=== PATIENT | female | born 1990 | race Asian ===

== ENCOUNTER 2024-03-18 13:28 | Outpatient (REF) | payer MEDICAID, SELFPAY ==
--- NOTE | ~2024-03-18 | XR_ITS ---
EXAMINATION: XR KNEE, LEFT CLINICAL INFORMATION: M25.562 - Pain in left knee COMPARISON: None available. TECHNIQUE: Three views of the left knee. FINDINGS: No fracture, dislocation, or focal bony abnormality. Normal bony mineralization. Mild medial compartment joint space narrowing, and minimal lateral joint space narrowing. Patellofemoral compartment demonstrates lateral facet narrowing to a mild to moderate degree with marginal osteophytes. There is a small suprapatellar joint effusion on lateral projection. There are normal soft tissues. XR/XR knee LT 3V IMPRESSION: 1. No acute bony abnormalities. 2. Mild tricompartmental osteoarthritis, most significant medial compartment. 3. Small suprapatellar joint effusion. Electronically signed by: Beto Coe MD 05/26/2024 09:24 AM [facility]
--- NOTE | ~2024-03-18 | XR_ITS ---
EXAMINATION: XR KNEE, RIGHT CLINICAL INFORMATION: M17.11 - Unilateral primary osteoarthritis, right knee COMPARISON: None available. TECHNIQUE: Three views of the right knee. FINDINGS: No fracture, dislocation, or focal bony abnormality. Normal bony mineralization. Minimal medial and lateral compartment joint space narrowing. Patellofemoral compartment demonstrates lateral facet narrowing to a mild to moderate degree with small marginal osteophytes. There is no definite joint effusion on the lateral projection although assessment is mildly limited due to flexion of the knee. There are normal soft tissues. XR/XR knee RT 3V IMPRESSION: 1. No acute bony abnormalities. 2. Minimal tricompartmental osteoarthritis. Electronically signed by: Beto Coe MD 05/26/2024 09:26 AM [facility] [place]
== END 2024-03-18 13:29 | disposition home or self-care (01) ==
LOC: HO.XRAY 13:28
PROVIDERS: Visit Provider Physician Assistant
DX: M17.11 Unilateral primary osteoarthritis, right knee (principal); M25.562 Pain in left knee; G89.29 Other chronic pain
CPT/HCPCS: 73562; 99212

== ENCOUNTER → 2024-03-18 13:33 | Outpatient (BNV) | payer MEDICAID, SELFPAY | PROVIDERS: Visit Provider Radiology Diagnostic Radiology | DX: M25.561 Pain in right knee (principal); M25.562 Pain in left knee | CPT/HCPCS: 73562 ==

== ENCOUNTER 2024-03-18 14:13 | Outpatient (AMB) | payer MEDICAID, SELFPAY ==
--- NOTE | 2024-03-18 14:15 | A.OFFVIS_ITS ---
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 Pt states she denies any previous injury to her knee before it becoming painful. Pt denies any radiating pain. Pt states she also has pain in her right knee as well. Pt states her left knee used to be more painful but state both are the same level of pain and it is becoming difficult to walk. Pt denies any previous surgeries or injections in her knees. 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 She denies any previous injury on her knees. She states she has pain in her bilateral knees that used to be worse on her left knee however the pain level is currently equal on both knees. Her pain makes it difficult for her to ambulate without pain and gives out. She also reports popping in her left knee. She has not had any previous surgeries or injection in her knees. She has tried physical therapy for a month without benefits. Review of Systems Const All systems reviewed & are unremarkable except as noted in HPI and below Physical Exam Const General: cooperative, healthy appearing, comfortable, no acute distress, well developed and alert Orientation/consciousness: patient oriented x3 HEENT Head: Yes normal to inspection, Yes normocephalic and Yes atraumatic Eyes General: appearance normal, both eyes and all related structures Resp Effort & Inspection: normal respiratory effort and able to speak in complete sentences Cardio Rate: regular rate Peripheral pulses: Peripheral pulses 2+ throughout GI Palpation (GI): Soft to palpation Skin Lesions: no lesions Rashes: no rashes Neuro General: patient oriented x3 Extrem Other: Left knee: Skin intact, no erythema or joint effusion. Tenderness along the medial joint line. Full ROM with crepitus. Negative Marivel?s. No ligamentous laxity. NVI. ? Results Reviewed Results Reviewed: EXAM: MR KNEE WITHOUT CONTRAST LEFT 01/31/24 INDICATION: Chronic left knee pain. TECHNIQUE: Routine multiplanar imaging is obtained. COMPARISON: None. FINDINGS:?Examination of the menisci shows a tear of the posterior horn medial meniscus at the root (series 8 image 19) associated with moderate meniscal extrusion. The tear extends slightly peripherally as a vertical longitudinal tear of the proximal white zone. Lateral meniscus is intact. Normal anterior cruciate ligament and posterior cruciate ligament. Medial collateral ligament and lateral collateral complex are intact. No osseous contusion. Mild reactive bone marrow edema along the medial joint oly e, chiefly on the tibial side. Moderate to large knee joint effusion. Patellar articular cartilage is preserved. Femoral trochlear cartilage is intact. Mild cartilage thinning posterior medial femorotibial joint. Intact extensor mechanism. IMPRESSION: 1. Posterior horn medial meniscal tear principally at the root with moderate meniscal extrusion. Minor articular cartilage loss medial femorotibial compartment peripherally with mild reactive edema within the proximal tibia peripherally. 2. Moderate to large knee joint effusion. xray of bilat knee obtained today show mild pf oa Assessment & Plan Assessment & Plan (1) Chronic patellofemoral pain of both knees: Code(s): M25.561 - Pain in right knee; M25.562 - Pain in left knee; G89.29 - Other chronic pain Category: Medical Plan I did explain the findings on MRI with the patient and her brother with an plaster molder present today. It does not seem as though she has mechanical symptoms at this time; however, it is difficulty to completely determine with the language barrier. At this time, We discussed options which include PT, NSAIDs and injections. The patient will defer on the injection today and proceed with PT and NSAIDs. I did send a prescription of Celebrex to her pharmacy. She will see us back in [address] Castillo for re-evaluation, sooner if needed. Orders: Orders XR knee RT 1V Today M25.561 - Pain in right knee XR knee LT 3V Today M25.562 - Pain in left knee XR knee RT 3V Today M17.11 - Unilateral primary osteoarthritis, right knee XR knee LT 1V Today M25.562 - Pain in left knee PT Evaluation and Treatment Today G89.29 - Other chronic pain, M25.561 - Pain in right knee, M25.562 - Pain in left knee Medications: New celecoxib (Celebrex) 200 mg PO BID 60 caps 3RF 30 days Patient Instructions: Scribed for Ta-Dena Morgan, PA-C, by Gilberto Rico, medical diagnostic radiographer, on 03/18/2024 at 2:15 PM EST.? I, Raheem Morgan PA-C, have personally reviewed and agree with the information entered by the scribe. Coding Level of Care Code New Pt Level 3 (55644) Complex EM visit Add On G2211 Diagnoses Chronic patellofemoral pain of both knees M25.561; M25.562; G89.29
== END 2024-03-18 15:10 | disposition home or self-care (01) ==
PROVIDERS: PCP Physician Assistant; Visit Provider Physician Assistant
DX: M25.561 Pain in right knee (principal); M25.562 Pain in left knee; G89.29 Other chronic pain
CPT/HCPCS: 99203

== ENCOUNTER 2024-04-27 09:38 | Outpatient (AMB) | payer MEDICAID, SELFPAY ==
--- NOTE | 2024-04-27 09:39 | MHC.OFFVIS ---
Vital Signs 04/27/24 09:41 Height 5 ft 2 in Weight 189 lb BMI 34.6 Intake Visit Reasons: OV - Bilateral PF Pain Intake Note: Geovanna is a 33 year old female who presents today for a follow up of her left knee pain. Patient was last seen with Lisa in February where she provided the patient with Physical therapy and an Rx of Celebrex as the patient deferred injections. Allergies No Known Allergies Allergy (Verified 03/18/24 14:15) HPI HPI OV - Bilateral PF Pain: Details: Geovanna is a 33 year old female who presents today for a follow up of her left knee pain. Patient was last seen with Lisa in February where she provided the patient with Physical therapy and an Rx of Celebrex as the patient deferred injections. She describes pain that often prevents her from leaving the house with swelling. She does not know how she injured her knee. Her right knee has begun bothering her. She is pretty apprehensive about surgery. Physical Exam Vital Signs: BMI result Body Mass Index 34.6 Extrem Other: Moderate left knee effusion and mild right knee effusion. Medial compartment tenderness on the left with medial joint line tenderness and a positive deep Marivel's. Results Reviewed Results Reviewed: I personally reviewed the MR images. Impression: 1. Posterior horn medial meniscal tear principally at the root with moderate meniscal extrusion. Minor articular cartilage loss medial femorotibial compartment peripherally with mild reactive edema within the proximal tibia peripherally. 2. Moderate to large knee joint effusion. Assessment & Plan Assessment & Plan (1) Tear of medial meniscus of left knee: Code(s): S83.242A - Other tear of medial meniscus, current injury, left knee, initial encounter Category: Medical Plan: This is a 33-year-old woman with a left knee medial meniscus root tear. The etiology is unknown and the timeframe is indeterminate. She is 33 however and has no significant arthritic changes of the knee. I recommend a left knee arthroscopy with possible medial meniscus repair. I explained to her the rationale of the procedure. Possible that is unrepairable and it is hard to know for certain based on the MRI but it is clear that there is a root tear and that she is having swelling and pain. Given her age I do recommend surgery and I discussed that if we are able to repair the posterior horn it should decrease the risk of worsening arthritis. Like I said, she is apprehensive about surgery. She feels overwhelmed at home with her and does not know if she can manage her responsibilities will recovering from surgery. I explained to her the risks benefits and alternatives to the surgery. Should she elect to not have surgery would recommend physical therapy for strengthening weight loss. She will think about it and get back to me. Plan Will discuss surgical treatment with family and call me if she wishes to move forward with surgical intervention, Otherwise PRN. Coding Level of Care Code Est Pt Level 4 (84649) Diagnoses Tear of medial meniscus of left knee S83.242A
[2024-04-27 09:41] VITALS: BMI 34.6
== END 2024-04-27 10:03 | disposition home or self-care (01) ==
LOC: HO.HOS 09:39
PROVIDERS: PCP Physician Assistant; Visit Provider Orthopaedic Surgery
DX: S83.242A Other tear of medial meniscus, current injury, left knee, initial encounter (principal)
CPT/HCPCS: 99214

== ENCOUNTER → 2024-04-27 09:38 | Outpatient (BNVA) | payer MEDICAID, SELFPAY | PROVIDERS: PCP Physician Assistant; Visit Provider Orthopaedic Surgery | DX: S83.242A Other tear of medial meniscus, current injury, left knee, initial encounter (principal); M25.561 Pain in right knee; X58.XXXA Exposure to other specified factors, initial encounter; Y93.9 Activity, unspecified; Y92.9 Unspecified place or not applicable; Y99.9 Unspecified external cause status | CPT/HCPCS: 99212 ==

== ENCOUNTER 2024-05-28 08:43 | Outpatient (AMB) | payer MEDICAID, SELFPAY ==
[2024-05-28 09:25] VITALS: BMI 34.6
--- NOTE | 2024-05-28 09:25 | A.OFFVIS_ITS ---
Vital Signs 05/28/24 09:25 Height 5 ft 2 in Weight 189 lb BMI 34.6 Intake Visit Reasons: Pre-Lt Knee 06/03/24 Intake Note: Geovanna is a 33 year old female who presents today for a pre op appointment for her left knee 06/03/24 NE. Allergies No Known Allergies Allergy (Verified 05/28/24 09:26) HPI HPI Pre-Lt Knee 06/03/24: Details: 33-year-old female who presents in the office today for her preoperative history and physical exam prior to a left knee arthroscopy to be performed on 06/03/[address] Castillo. The patient reports her pain is limiting her daily activities. She has tried and failed all conservative treatments. Therefore, she has elected to proceed with a left knee arthroscopy. Patient has no known allergy history. Patient is currently taking, as follows: -Celecoxib 200 mg PO BID. Patient has no medical history. Patient has no surgical history. [facility] Social History (Updated 05/28/24 @ 09:26 by Sam Galloway) Alcohol intake: never Patient Tobacco Use Status: Never used Tobacco Current occupational status: unemployed Review of Systems Const All systems reviewed & are unremarkable except as noted in HPI and below Physical Exam Vital Signs: BMI result Body Mass Index 34.6 Const General: cooperative, healthy appearing, comfortable, no acute distress, well developed, alert and awake Orientation/consciousness: patient oriented x3 HEENT Head: Yes normal to inspection, Yes normocephalic and Yes atraumatic Eyes General: appearance normal, both eyes and all related structures Neck Neck: Yes normal visual inspection and Yes no lymphadenopathy Resp Effort & Inspection: normal respiratory effort and able to speak in complete sentences Cardio Rate: regular rate Peripheral pulses: Peripheral pulses 2+ throughout GI Inspection: Yes normal to inspection Palpation (GI): Soft to palpation Skin General skin exam: no rashes or lesions noted Neuro General: patient oriented x3 Extrem Other: Moderate left knee effusion and mild right knee effusion. Medial compartment tenderness on the left with medial joint line tenderness and a positive deep Marivel's. Psych Mental Status: mental status grossly normal Assessment & Plan Assessment & Plan (1) Tear of medial meniscus of left knee: Code(s): S83.242A - Other tear of medial meniscus, current injury, left knee, initial encounter Category: Medical Plan Ms. Gallardo is a 33-year-old female who presents in the office today for her preoperative history and physical exam prior to a left knee arthroscopy to be performed on 06/03/[address] Castillo. The patient reports her pain is limiting her daily activities. She has tried and failed all conservative treatments. Therefore, she has elected to proceed with a left knee arthroscopy. Patient has no known allergy history. Patient is currently taking, as follows: -Celecoxib 200 mg PO BID. Patient has no medical history. Patient has no surgical history. I discussed in detail the procedure and what to expect pre and post operatively. We discussed the risks, benefits and alternatives to the surgery and the rehabilitation course. The risks include infection, bleeding, nerve injury, ongoing pain, swelling, and stiffness, perioperative risk of injury to bones and soft tissues, and blood clots. I have answered all questions and with their understanding they have consented to move forward with a left knee arthroscopy to be performed on 06/03/[address] Castillo. Follow-up will be at the post operative appointment on 06/09/2024, or sooner if needed. Patient Instructions: Scribed by Priscilla Cooley senior medical technologist, for Lisa Christensen PA-C on 05/28/24 at 9:43 am EST. Coding Level of Care Code Global (95583) Diagnoses Tear of medial meniscus of left knee S83.242A
== END 2024-05-28 09:46 | disposition home or self-care (01) ==
PROVIDERS: PCP Physician Assistant; Visit Provider Physician Assistant
DX: S83.242A Other tear of medial meniscus, current injury, left knee, initial encounter (principal)
CPT/HCPCS: 99024

== ENCOUNTER → 2024-05-28 08:43 | Outpatient (BNVA) | payer MEDICAID, SELFPAY | PROVIDERS: PCP Physician Assistant; Visit Provider Physician Assistant | DX: Z01.818 Encounter for other preprocedural examination (principal); S83.242A Other tear of medial meniscus, current injury, left knee, initial encounter; X58.XXXA Exposure to other specified factors, initial encounter; Y93.9 Activity, unspecified; Y92.9 Unspecified place or not applicable; Y99.9 Unspecified external cause status | CPT/HCPCS: 99212 ==

== ENCOUNTER 2024-06-03 05:44 | Day surgery (SDC) | payer MEDICAID, SELFPAY ==
[2024-06-01 10:09] VITALS: BMI 34.6
--- NOTE | 2024-06-01 14:06 | HO.ANESPROP2 ---
Documented by User: Dagmar Allison NP 06/02/24 10:37 HPI - Anesthesia Eval Consult details Narrative: 33yo F for Left Knee Arthroscopy possible medial meniscus repair PMFSH Active Problems Active Problems: All Active Problems Tear of medial meniscus of left knee (Acute) Chronic patellofemoral pain of both knees (Acute) Surgical History Surgical History Hx of section Social History Social History Alcohol intake: never Patient Tobacco Use Status: Never used Tobacco Use of substances other than those prescribed or required for medical reasons: No Are you DNR?: No Advance Directives: No Advance Directives Information Provided: Yes Current occupational status: unemployed Meds Allergies Allergy/AdvReac Type Severity Reaction Status Date / Time No Known Allergies Allergy Verified 06/03/24 06:12 Exam Height,Weight and Vital Signs: Height 5 ft 2 in Weight 85.729 kg Assessment and Plan Assessment Anesthesia Assessment: Chart Reviewed Documented by User: Audrey Roldan MD 06/03/24 08:16 PMFSH Family History Family history of problems with anesthesia: No Surgical History Surgical History Hx of section History of Problems with Anesthesia: No Social History Social History Alcohol intake: never Patient Tobacco Use Status: Never used Tobacco Use of substances other than those prescribed or required for medical reasons: No Are you DNR?: No Advance Directives: No Advance Directives Information Provided: Yes Current occupational status: unemployed Meds Allergies Allergy/AdvReac Type Severity Reaction Status Date / Time No Known Allergies Allergy Verified 06/03/24 06:12 Exam Airway Mallampati Class: III (no neck) TM Dist: <=3cm Neck ROM: Poor Heart: rrr Lungs: cta Assessment and Plan Assessment Anesthesia Assessment: Anesthesia Plan Discussed Final Anesthetic Review Family History of Problems with Anesthesia: No History of Problems with Anesthesia: No NPO: Yes ASA Class: III Final Preanesthetic Review: No Changes in Pt Med Stat, Meds/Allgs Chart Reviewed, Consent Obtained/Reviewed and Anes Risks/Benef Reviewed Patient Risk: Intermediate Procedure Risk: Low Anesthetic Plan Anesthetic Plan: GA Disposition: Standard PACU
[2024-06-03] VITALS (7 sets, daily range): BP systolic 120–131; BP diastolic 57–92; PULSE 90–109; RESP 14–16; TEMP 36.6–36.9; O2SAT 93–99; BMI 40.6
[2024-06-03 06:21] LABS: UPreg QC Valid YES; Urine Pregnancy NEGATIVE (NEGATIVE)
[2024-06-03] MEDS: Lactated Ringers 1,000 ML 100 ML IVCONT (06:31)
--- NOTE | 2024-06-03 07:31 | MHC.SHP ---
Pre-Procedural Eval Section A - 24 Hr Update-Section A only Date of Service: 06/03/24 The patient is an INPATIENT: No Changes since office visit: No Cold of Flu in the past 2 weeks, No New Medical Problems, No Changes in Medication and No Patient answered all questions The patient has been examined within 24 hours of the surgical procedure. The History & Physical has been completed within 30 days and I have reviewed it.: Yes Section B - Complete if H&P > 30 days Chief Complaint: Other tear of medial meniscus, current injury, lef Allergies: Allergies Allergy/AdvReac Type Severity Reaction Status Date / Time No Known Allergies Allergy Verified 06/03/24 06:12 Plan I have reviewed the history and physical and performed a pertinent physical examination on my patient. No changes have occurred unless specified. Time Spent With Patient Time: Total time managing care of this patient today ____ minutes.
--- NOTE | 2024-06-03 09:14 | W.PM.OPN ---
Operative Note Operative Note Date of Service: 06/03/24 Narrative: Date of Service: 06/03/24 Pre-op diagnosis: Left knee medial meniscus root tear Post-op diagnosis: same Procedure: Left knee medial meniscus root repair Implants: [employer] x 1 Surgeon: Shalom Castillo MD Anesthesia: GETA, regional and local Was an Business Systems Advisor used for this Procedure?: Yes Business Systems Advisor: Lisa Christensen Estimated blood loss (mL): 25 Tourniquet time (min): 65 IV fluids (mL): 1,000 Pathology: none sent Condition: stable Disposition: PACU Procedure in detail: Patient was brought to the operating room placed supine on the arthroscopic table and prepped and draped in standard sterile fashion. A time-out was called to identify proper site proper procedure proper surgeon and IV antibiotics per weight were administered. I began by exsanguinating the limb and insufflating tourniquet to 300 mm Hg. Then made a standard anterolateral stab incision. The knee was insufflated with water and 30 degree arthroscope was placed. There was a normal patellofemoral joint. The suprapatellar pouch and the gutters were clean. I descended into the medial compartment where I made my medial portal under direct visualization. The meniscus was examined and there was a complete tear of the root at its insertion with an otherwise normal meniscus. There were grade 1 changes in the tibial plateau. I used shaver to perform a limited chondroplasty. I then used a suture passer to pass two looped suture tapes through the free edge of the medial meniscus. I then used a ringed currette to debride the root insertion site. I then drilled a pin through the anterolateral tibia through the footprint using the root repair guide set at ~55deg. I passed a nitinol loop through this and retrieved the two limbs of suture tape attached to the meniscus. I then brought the meniscus to its insertion site while flexed at 30 deg. The suture was then dunked into a footprint anchor anterolateral to the tibial tubercle and the suture tightened. The repair was anatomic and I was satisfied. The ACL was examined and found to be intact and the lateral compartment also was without the need for intervention. I then removed all instrumentation and closed the portals with skin glue. 25 mL of 2% Marcaine with epinephrine was injected into the joint and the surrounding soft tissues. Patient was then placed in sterile dressing extubated brought recovery room stable condition. There were no known complications.
[2024-06-03] MEDS: ondansetron HCL 4 MG/2 ML VIAL IVPUSH (10:15)
== END 2024-06-03 11:56 | disposition home or self-care (01) ==
LOC: HO.SSS 05:45
PROVIDERS: Nurse Practitioner; Visit Provider Orthopaedic Surgery
PROC: (CPT 29870; principal; 2024-06-03 07:30)
DX: S83.242A Other tear of medial meniscus, current injury, left knee, initial encounter (principal); X58.XXXA Exposure to other specified factors, initial encounter; Y93.9 Activity, unspecified; Y92.9 Unspecified place or not applicable; Y99.9 Unspecified external cause status; M25.462 Effusion, left knee; G89.29 Other chronic pain; M25.562 Pain in left knee; E55.9 Vitamin D deficiency, unspecified; K76.0 Fatty (change of) liver, not elsewhere classified; Z56.0 Unemployment, unspecified; Z79.899 Other long term (current) drug therapy
CPT/HCPCS: 29882; 81025; C1713; J0131; J0171; J0690; J1171; J2003; J2250; J2405; J2704; J2795; J3010

== ENCOUNTER → 2024-06-03 05:44 | Outpatient (BNV) | payer MEDICAID, SELFPAY | PROVIDERS: Visit Provider Orthopaedic Surgery | DX: S83.242A Other tear of medial meniscus, current injury, left knee, initial encounter (principal) | CPT/HCPCS: 29882 ==

== ENCOUNTER 2024-06-09 09:56 | Outpatient (AMB) | payer MEDICAID, SELFPAY ==
--- NOTE | 2024-06-09 10:03 | A.OFFVIS_ITS ---
Intake Visit Reasons: PO-Lt Knee 06/03/24 Intake Note: Geovanna is a 33 year old female who presents to the office today for a post op appointment s/p Lt Knee meniscal root repair 06/03/24. Patient reports she is doing well. She mentions that her pain comes and goes but today it feels a bit better. Allergies No Known Allergies Allergy (Verified 06/03/24 06:12) HPI HPI PO-Lt Knee 06/03/24: Details: 33-year-old female who presents in the office today 6 days status post left knee arthroscopic medial meniscus root repair, which was performed on 06/03/[address] Castillo. While in the office today, the patient reports she is doing well post-op. She mentions experiencing intermittent pain in her left knee; however, she feels mild improvement in her pain today. [facility] Surgical History Hx of section Social History Alcohol intake: never Patient Tobacco Use Status: Never used Tobacco Current occupational status: unemployed Review of Systems Const All systems reviewed & are unremarkable except as noted in HPI and below Physical Exam Const General: cooperative, healthy appearing and no acute distress Resp Effort & Inspection: normal respiratory effort and able to speak in complete sentences Cardio Rate: regular rate Peripheral pulses: Peripheral pulses 2+ throughout GI Palpation (GI): Soft to palpation Skin Lesions: no lesions Rashes: no rashes Extrem Other: Left knee: Incision sites are clean, dry, and intact. Sutures intact. No surrounding erythema or drainage. No signs of infection. Range of motion is 0-70 degrees. NVI. Assessment & Plan Assessment & Plan (1) Tear of medial meniscus of left knee: Code(s): S83.242A - Other tear of medial meniscus, current injury, left knee, initial encounter Category: Medical Plan Ms. Gallardo is a 33-year-old female who presents in the office today 6 days status post left knee arthroscopic medial meniscus root repair, which was performed on 06/03/[address] Castillo. While in the office today, the patient reports she is doing well post-op. She mentions experiencing intermittent pain in her left knee; however, she feels mild improvement in her pain today. Sutures were removed and steri-strips were applied. She was placed back into the ACL brace today. I educated the patient on not bending her left knee past 90 degrees. We discussed the role of physical therapy and the patient would like to attend [facility] physical therapy in [place] for physical therapy. Therefore, I have provided her with a copy of the meniscal route repair protocol as well as my business card attached to the protocol for the physical therapist. She was instructed to begin physical therapy within one week and should there be any questions she or the therapist could reach out to me directly. Follow-up will be in [address] Castillo, or sooner if needed. Orders: Orders PT Evaluation and Treatment Today S83.242A - Other tear of medial meniscus, current injury, left knee, initial encounter Patient Instructions: Scribed by Priscilla Cooely, medical laboratory technician, for Lisa Christensen PA-C on 06/09/24 at 10:55 am EST. Coding Level of Care Code Global (38691) Diagnoses Tear of medial meniscus of left knee S83.242A
== END 2024-06-09 10:22 | disposition home or self-care (01) ==
PROVIDERS: PCP Physician Assistant; Visit Provider Physician Assistant
DX: S83.242A Other tear of medial meniscus, current injury, left knee, initial encounter (principal)
CPT/HCPCS: 99024

== ENCOUNTER → 2024-06-09 09:56 | Outpatient (BNVA) | payer MEDICAID, SELFPAY | PROVIDERS: PCP Physician Assistant; Visit Provider Physician Assistant | DX: S83.242D Other tear of medial meniscus, current injury, left knee, subsequent encounter (principal) | CPT/HCPCS: 99212 ==

== ENCOUNTER 2024-07-13 12:47 | Outpatient (AMB) | payer MEDICAID, SELFPAY ==
--- NOTE | 2024-07-13 12:49 | MHC.OFFVIS ---
Intake Visit Reasons: PO-Lt Knee Medial Meniscus Root Repair 06/03/24 Intake Note: Geovanna is a 34 year old female who presents today for a six week post operative appointment s/p Left Knee Medial Meniscus Root Repair 06/03/2024. She was placed in ROM Brace and instructed to do no bending over 90 degrees. States she has not started PT due to her pain. Allergies No Known Allergies Allergy (Verified 07/13/24 12:50) HPI HPI PO-Lt Knee Medial Meniscus Root Repair 06/03/24: Details: Six weeks status post medial meniscus root repair. She is still not done physical therapy. She states she is waiting until the pain gets better. She is walking with crutches and has a brace on. PFSH Surgical History Hx of section Social History Alcohol intake: never Patient Tobacco Use Status: Never used Tobacco Current occupational status: unemployed Physical Exam Extrem Other: 0-70 degrees of motion Incisions clean dry and intact She can straight leg raise Assessment & Plan Assessment & Plan (1) H/O medial meniscus repair of left knee: Code(s): Z98.890 - Other specified postprocedural states Category: Surgical Plan: 6 weeks status post medial meniscus root repair. She is going to start physical therapy MONET. I reviewed protocol with her and she should can progress to gradual full weight-bearing with crutches over the next 6 weeks. Continue brace wear. May remove for PT. Follow up 6 weeks. Coding Level of Care Code Global (92605) Diagnoses H/O medial meniscus repair of left knee Z98.890
== END 2024-07-13 13:33 | disposition home or self-care (01) ==
PROVIDERS: PCP Physician Assistant; Visit Provider Orthopaedic Surgery
DX: Z98.890 Other specified postprocedural states (principal)
CPT/HCPCS: 99024

== ENCOUNTER → 2024-07-13 12:47 | Outpatient (BNVA) | payer MEDICAID, SELFPAY | PROVIDERS: PCP Physician Assistant; Visit Provider Orthopaedic Surgery | DX: Z47.89 Encounter for other orthopedic aftercare (principal); Z98.890 Other specified postprocedural states | CPT/HCPCS: 99212 ==

== ENCOUNTER 2024-08-24 12:01 | Outpatient (AMB) | payer MEDICAID, SELFPAY ==
--- NOTE | 2024-08-24 12:06 | A.OFFVIS_ITS ---
Intake Visit Reasons: PO-Lt Knee Medial Meniscus Root Repair 06/03/24 Intake Note: Geovanna is a 34 year old female who presents today for a post operative appointment about 3 months s/p Left Knee Medial Meniscus Root Repair 06/03/2024. At her last visit it was discussed that she should be transitioning to full weight-bearing however she presents today still using crutches only partial weight bearing. She has been attending physical therapy with [facility] which has helped her ROM. She still complains of some mild pain. Allergies No Known Allergies Allergy (Verified 08/24/24 12:07) HPI HPI PO-Lt Knee Medial Meniscus Root Repair 06/03/24: Details: Geovanna is a 34 year old female who presents today for a post operative appointment about 3 months s/p Left Knee Medial Meniscus Root Repair 06/03/2024. At her last visit it was discussed that she should be transitioning to full weight-bearing however she presents today still using crutches only partial weight bearing. She has been attending physical therapy with [facility] which has helped her ROM. She still complains of some mild pain. [facility] Surgical History Hx of section Social History Alcohol intake: never Patient Tobacco Use Status: Never used Tobacco Current occupational status: unemployed Physical Exam Extrem Other: Incisions clean dry and intact Full range of motion with no effusion Negative Marivel's. No gait antalgia but tentative with full weight-bearing Assessment & Plan Assessment & Plan (1) H/O medial meniscus repair of left knee: Code(s): Z98.890 - Other specified postprocedural states Category: Surgical Plan: Three months status post root repair. May continue weight-bearing as tolerated. Wean crutches. Wean brace. Follow up 3 months. Continue physical therapy. Prescription written for 800 mg ibuprofen p.r.n. Medications: New ibuprofen 800 mg PO TID PRN 90 tabs 1RF pain Coding Level of Care Code Global (54830) Diagnoses H/O medial meniscus repair of left knee Z98.890
--- OUTSIDE RECORDS SUMMARY | 2024-08-24 14:09 | XMS_ITS | Clinical Summary ---
Author Organization [facility] Address [address] [place] [address] Phone Care Team Providers Care Photograph Tinter Name Role Phone Elina Jorgensen Primary Care Provider [phone] Allergies Active Allergy Reactions Criticality Noted Date Comments Other 03/09/2019 Seasonal Allergies Medications adapalene (DIFFERIN) 0.1 % gel APPLY TO AFFECTED AREA EVERY DAY 02/08/2020 Active ketoconazole (NIZORAL) 2 % shampoo USE 3X WEEKLY A FACE AND BODY WASH 09/09/2018 Active spironolactone (ALDACTONE) 100 mg tablet Take 1 Tab by mouth 2 times daily. 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 Infection, fungal, left foot 09/16/2018 DX: Infection, fungal, left foot Family History Medical History Relation Name Comments No Known Problems Brother Diabetes Father Hypertension, H yperlipidemia Diabetes Mother Depression, Hyp ertension, Hyperlipidemia Diabetes Sister 1 No Known Problems Sister 2 No Known Problems Sister 3 Relation Name Status Comments Brother Alive Father Alive Maternal Grandfather Maternal Grandmother Mother Alive Paternal Grandfather Paternal Grandmother Sister 1 Alive Sister 2 Alive Sister 3 Alive Social History Tobacco Use Types Packs/Day Years Used Date Smoking Tobacco: Never Smokeless Tobacco: Never Alcohol Use Standard Drinks/Week Comments No 0 (1 standard drink = 0.6 oz pur e alcohol) Comments Unknown Sex and Gender Information Value Date Recorded Sex Assigned at Not on file Legal Sex Female 5:49 AM EST Gender Identity Not on file Sexual Orientation Not on file Obstetrics History Last Filed Vital Signs Vital Sign Reading Time Taken Comments Blood Pressure - - Pulse - - Temperature - - Respiratory Rate - - Oxygen Saturation - - Inhaled Oxygen Concentration - - Weight 90.3 kg (199 lb) 03/10/2024 3:43 PM EDT Height 149.9 cm (4' 11 ) 03/10/2024 3:43 PM EDT Body Mass Index 40.19 03/10/2024 3:43 PM EDT Plan of Treatment Health Maintenance Due Date Last Done Comments Hepatitis B Vaccines (1 of 3 - 19+ 3-dose series) 2008 Cervical Cancer Screening: P ap Smear 2010 Depression Screening 05/27/2022 HIV Screening 05/27/2022 Hepatitis C Screening 05/27/2022 Social Influencers of Health Screening 05/27/2022 DTaP,Tdap,and Td Vaccines (2 - Td or Tdap) 01/01/2023 01/01/2013 COVID-19 Vaccine (2 - 2023-2 5 season) 2024 10/04/2020 Influenza Vaccine (#1) 2024 08/03/2019 HPV Vaccines Completed 08/03/2019, 02/03/2013, 01/01/2013 HIB Vaccines Aged Out No longer eligi ble based on patient's age to complete this topic Hepatitis A Vaccines Aged Out No long er eligible based on patient's age to complete this topic IPV Vaccines Aged Out No longer eligi ble based on patient's age to complete this topic MMR Vaccines Aged Out No longer eligi ble based on patient's age to complete this topic Meningococcal ACWY Vaccine Aged Out N o longer eligible based on patient's age to complete this topic Meningococcal B Vacine Aged Out No lo nger eligible based on patient's age to complete this topic Pneumococcal Vaccine: Pediatrics (0 to 5 Years) and At-Risk Patients (6 to 64 Years) Aged Out No longer eligible b ased on patient's age to complete this topic RSV Immunization Patients Under 20 months Aged Out No longer eligible b ased on patient's age to complete this topic Varicella Vaccines Aged Out No longer eligible based on patient's age to complete this topic Insurance MEDICAID - [place] Care Teams Photograph Tinter Relationship Specialty Start Date End Date Elina Jorgensen PA [address] [place] [address] PCP - General 12/09/23
--- OUTSIDE RECORDS SUMMARY | 2024-08-24 14:09 | XMS_ITS | Clinical Summary ---
Author Organization [facility] Address [address] [place] [address] Care Team Providers Care Carroting Machine Offbearer Name Role Phone Elina Jorgensen PA-C Primary Care Provider Source Comments PLEASE NOTE, if this patient is a minor, it may be UNLAWFUL to discuss sensitive information that is contained in these records (such as FAMILY PLANNING, MENTAL HEALTH or SUBSTANCE ABUSE) with the minor patient's parent or other person without the patient's specific authorization.[facility] Allergies No known active allergies Medications acetaminophen (TYLENOL) 325 mg tablet Take 2 Tablets by mouth every 6 (six) hours as needed for pain 60 Tablet 1 02/27/2023 Active naproxen (NAPROSYN) 500 mg tabletIndicatio ns:Chronic pain of left knee Take 1 Tablet by mouth 2 (two) times daily with a meal 60 Tablet 01/30/2024 Active cetirizine (ZYRTEC) 10 mg tabletIndicatio ns:Seasonal allergies TAKE 1 TABLET BY MOUTH EVERY DAY 90 Tablet 1 03/09/2024 Active Hospital, Clinic, or Other Facility Administered Medication Ordered Dose Route Frequency Start Date End Date Status Nexplanon 68 mg implant (etonogestreL)Indications :Nexplanon insertion 68 mg sdrm EVERY 3 YEARS 02/23/2022 A ctive Active Problems Problem Noted Date Diagnosed Date Non-alcoholic fatty liver disease 03/22/2023 Overview (03/22/2023): 03/18/23 US Liver Vitamin D deficiency 07/30/2018 BMI 37.0-37.9, adult 07/28/2018 Acne vulgaris 11/29/2016 Positive TB test 01/01/2013 Overview (02/02/2013): Positive t-spot Refugee health examination 01/01/2013 Overview (02/02/2013): Patient is [facility] Resolved Problems Problem Noted Date Diagnosed Date Resolved Date Infection, fungal, left foot 07/28/2018 07/28/2018 Itchy eyes 07/28/2018 08/03/2019 Gastroesophageal reflux disease 11/29/2016 07/28/2018 Pruritus 11/27/2013 08/03/2019 Overview (11/27/2013): ears Immunizations Name Administration Dates Next Due Flu, Preservative Free 02/27/2023,08/03/2019 HPV 9 (Gardasil) 08/03/2019 HPV, QUADRIVALENT 02/03/2013,01/01/2013 INFLUENZA, SEASONAL, INJECTABLE 06/04/2013 MODERNA COVID-19 VACCINE BIV ALENT, BLUE CAP, 6M+ 02/27/2023 Moderna COVID-19 Vaccine, re d cap blue label, 12+ Primary Series 07/21/2021,11/01/2020,10/04/2020 TDAP 02/27/2023,01/01/2013 Family History Medical History Relation Name Comments No Known Problems Brother Diabetes Father High Cholesterol Father Hypertension Father Depression Mother Diabetes Mother High Cholesterol Mother Hypertension Mother Diabetes Sister 1 No Known Problems Sister 2 No Known Problems Sister 3 No Known Problems Son Relation Name Status Comments Brother Alive Father Alive Maternal Grandfather Maternal Grandmother Mother Alive Paternal Grandfather Paternal Grandmother Sister 1 Alive Sister 2 Alive Sister 3 Alive Son Alive Social History Tobacco Use Types Packs/Day Years Used Date Smoking Tobacco: Never Passive Smoke Exposure: Never Smokeless Tobacco: Never Tobacco Cessation:Counseling Given: Not Answered Alcohol Use Standard Drinks/Week Comments No 0 (1 standard drink = 0.6 oz pur e alcohol) Social Connections Answer Date Recorded Connectedness 0 02/27/2023 Financial Resource Strain Answer Date R ecorded Financial Resource Strain 0 2022 Stress Answer Date Recorded Stress 0 02/27/2023 Physical Activity Answer Date Recorded Physical Activity 0 02/12/2019 Food Insecurity Answer Date Recorded Food 0 02/27/2023 Transportation Needs Answer Date Record ed Transportation 0 02/27/2023 Housing Stability Answer Date Recorded Housing 0 02/27/2023 Safety and Environment Answer Date Fito rded Safety 0 02/27/2023 Utilities Answer Date Recorded Utilities 0 02/27/2023 Employment Answer Date Recorded Employment 0 02/12/2019 Comments No Sex and Gender Information Value Date Recorded Sex Assigned at Female 07/28/2018 6:13 AM PST Legal Sex Female 10:43 AM PDT Gender Identity Female 07/28/2018 6:13 AM PST Sexual Orientation Straight 07/28/2018 6: 13 AM PST 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 Not on file Not on file Not on file Last Filed Vital Signs Vital Sign Reading Time Taken Comments Blood Pressure 124/78 02/19/2024 10:00 AM EDT Pulse 89 02/19/2024 10:00 AM EDT Temperature 36.9 ??C (98.4 ??F) 02/19/2024 10:00 AM E DT Respiratory Rate 16 02/19/2024 10:00 AM EDT Oxygen Saturation 98% 02/19/2024 10:00 AM EDT Inhaled Oxygen Concentration - - Weight 102.5 kg (226 lb) 02/19/2024 10:00 AM EDT Height 152.4 cm (5') 02/19/2024 10:00 AM EDT Body Mass Index 44.14 02/19/2024 10:00 AM EDT Plan of Treatment Upcoming Encounters Date Type Department Care Team (Late st Contact Info) Description 10/14/2024 10:20 AM EDT Office Visit [facility] [address] [place] [phone] Elina Jorgensen PA-C [address] [place] [address] Health Maintenance Due Date Last Done Comments Dental FMX/Pano 1989 HPV Screening 1989 [id number] ( season) 2024 02/27/2023, 07/21/2021, 11/01/2020, Additional history exists Imm-Influenza (#1) 2024 02/27/2023, 0 08/03/2019, 06/04/2013 Relationship Safety Screening/Counseling 02/28/2024 02/27/2023, 02/05/2022 Annual Preventive Care Visit 05/29/202411/2022, 02/27/2023, 02/05/2022, Additional history exists Dental BW 06/06/2024 06/04/2023 Dental Examination 06/06/2024 06/04/2023 Dental Perio Charting 06/06/2024 06/04/2023 Dental Prophy 06/06/2024 06/04/2023 Alcohol and Drug Screen 2024 01/30/20 24, 02/27/2023, 02/05/2022, Additional history exists Depression Annual Screen 2024 024, 02/27/2023, 11/04/2015 Hypertension Screening (#1) 02/18/2025 Tobacco Screening 02/18/2025 02/19/2024, 02/27/2023 LARC-Nexplanon implant 02/23/2025 02/23/2022 Diabetes Screening 03/06/2026 03/06/2023, 0 02/19/2022, 08/03/2019, Additional history exists Lipid Screening 03/06/2026 03/06/2023, 01/23, 08/03/2019, Additional history exists Pap Smear 05/29/2026 05/29/2023, 02/19/2020 Cervical Cancer Screening 05/29/2028 Pap + HPV 05/29/2028 05/29/2023 Imm-DTaP/Tdap/Td (3 - Td or Tdap) 02/27/2033 023, 01/01/2013 HIV Screening Completed 08/03/2019 Hepatitis C Screening Completed 02/19/2022 Cervical Ablation/Cold-Knife Conization Discontinued Cervical Cryotherapy Discontinued Colposcopy Discontinued Endometrial Biopsy Discontinued Excision/Leep Discontinued HPV Genotyping Discontinued Imm-Hepatitis B Discontinued Vaginal Pap Discontinued Vulvoscopy Discontinued Procedures Procedure Name Priority Date/Time Associated Diagnosis Comments REFERRAL SCANNED DOCUMENT 07/13/2024 3:00 AM EST REFERRAL SCANNED DOCUMENT 06/09/2024 3:00 AM EST REFERRAL TO ORTHOPEDICS Routine 05/28/2024 3:00 AM EST Acute pain of left knee COMP PERIODONTAL EVALUATION - NEW/EST PATIENT Routine 06/04/2023 2:20 PM EST Encounter for dental examination BITEWINGS - FOUR RADIOGRAPHIC IMAGES Routine 06/04/2023 2:20 PM EST Encounter for dental examination PROPHYLAXIS - ADULT Routine 06/04/2023 2 :20 PM EST Encounter for dental examination PERIODIC ORAL EVALUATION ESTABLISHED PATIENT Routine 06/04/2023 2:20 PM EST Encounter for dental examination THIN PREP IMAGE PAP + HPV RNA E6/E7 W/RFLX HPV 16, 18/45 Routine 05/29/2023 1:13 PM EST Encounter for Papanicolaou smear for cervical cancer screening COMPREHENSIVE METABOLIC PANEL Routine 03/06/2023 9:12 AM EDT Encounter for annual physical exam LIPID PANEL Routine 03/06/2023 9:12 AM EDT Encounter for annual physical exam HEPATITIS C AB W/RFLX HCV RNA, QT, RT PCR Routine 02/19/2022 10:40 AM EDT Encounter for annual physical exam ANTIBODY HIV-1&HIV-2 SINGLE RESULT Routine 08/03/2019 9:43 AM EST Encounter for general adult medical examination without abnormal findings from Last 3 Months or Most Recently Relevant to Health Maintenance Results * REFERRAL SCANNED DOCUMENT (07/13/2024 3:00 AM EST) Only the most recent of2 resultswithin the time period is included. 07/13/2024 3:00 AM EST Elina Jorgensen PA-C SCAN REFERRAL Final Result * REFERRAL TO ORTHOPEDICS (05/28/2024 3:00 AM EST) 05/28/2024 3:00 AM EST Carlota Ansari CURING MACHINE OPERATOR-BC REFERRAL Final Res ult * THIN PREP IMAGE PAP + HPV RNA E6/E7 W/RFLX HPV 16, 18/45 (05/29/2023 1:13 PM EST) HPV MRNA E6/E7 Not Detected Not Detected [employer] Comment: Methodology: Head Of Training And Development-Mediated Amplification This assay detects E6/E7 viral messenger RNA (mRNA) from 14 high-risk HPV types (16,18,31,33,35,39,45,51,52,56,58,59,66,68). Cervical sources are required for HPV testing. If a vaginal source from a patient who has had a total hysterectomy with removal of cervix was submitted, please contact the testing laboratory for alternative testing options. For additional information, please refer to http://education.Coupmon/faq/GDU917v3 (This link if provided for information/ educational purposes only.) CLINICAL INFORMATION See Note [employer] Comment:Routine exam LMP See Note [employer] Comment:[id number] PREV. PAP [employer] PREV. BX See Note [employer] Comment:NONE GIVEN SOURCE See Note [employer] Comment:Cervix STATEMENT OF ADEQUACY See Note [employer] Comment: Satisfactory for evaluation. Endocervical/transformation zone component present. Partially obscuring blood INTERPRETATION/RESU LT See Note [employer] Comment: Cytology Results: Negative for intraepithelial lesion or malignancy. COMMENT See Note [employer] Comment: This Pap test has been evaluated with computer assisted technology. HADOOP ANALYST See Note [facility] [employer] Comment: RMM, CT(ASCP) CT screening location: [address] ??[address] COMMENT [employer] Swab Cervix uteri structure / Unknown 05/29/2023 1:13 PM EST 05/31/2023 12:29 AM EST Narrative [facility] [employer] - 06/03/2023 8:02 PM EST EXPLANATORY NOTE: The Pap is a screening test for cervical cancer. It is not a diagnostic test and is subject to false negative and false positive results. It is most reliable when a satisfactory sample, regularly obtained, is submitted with relevant clinical findings and history, and when the Pap result is evaluated along with historic and current clinical information. us Elina Jorgensen PA-C LAB - NO BLOOD DRAW Final Re sult [facility] [employer] [address] [place] [id number], [facility] [address] [place] [address] * (ABNORMAL) LIPID PANEL (03/06/2023 9:12 AM EDT) CHOLESTEROL, TOTAL 184 <200 mg/dL [facility] HDL CHOLESTEROL 45(L) > OR = 50 mg/dL [facility] TRIGLYCERIDES 76 <150 mg/dL [facility] LDL-CHOLESTEROL 122(H) 99 mg/dL (calc) [facility] Comment: Reference range: <100 Desirable range <100 mg/dL for primary prevention; ?? <70 mg/dL for patients with CHD or diabetic patients with > or = 2 CHD risk factors. LDL-C is now calculated using the Angelica calculation, which is a validated novel method providing better accuracy than the Friedewald equation in the estimation of LDL-C. Kwasi EAST et al. JOSE ARMANDO. 2013;310(19): 1537-0191 (http://education.Fight My Monster/faq/CYV351) CHOL/HDLC RATIO 4.1 <5.0 (calc) [facility] NON-HDL CHOLESTEROL 139(H) <130 mg/dL (calc) [facility] Comment: For patients with diabetes plus 1 major ASCVD risk factor, treating to a non-HDL-C goal of <100 mg/dL (LDL-C of <70 mg/dL) is considered a therapeutic option. Blood Blood / Unknown 03/06/2023 9 :12 AM EDT 03/06/2023 9:13 AM EDT Narrative [email or web address] [facility] - 03/07/2023 12:54 AM EDT FASTING:YES us Elina Jorgensen PA-C LAB - BLOOD DRAW Final Resul t [email or web address] [facility] [address] [address], [facility] [address] [place] [address] * (ABNORMAL) COMPREHENSIVE METABOLIC PANEL (03/06/2023 9:12 AM EDT) GLUCOSE 145(H) 65 - 99 mg/dL [employer] [facility] Comment: ?Fasting reference interval For someone without known diabetes, a glucose value >125 mg/dL indicates that they may have diabetes and this should be confirmed with a follow-up test. UREA NITROGEN (BUN) 15 7 - 25 mg/dL [facility] CREATININE (blood) 0.62 0.50 - 0.97 mg/dL [facility] EGFR 121 > OR = 60 mL/min/1. 73m2 [facility] BUN/CREATININE RATIO SEE NOTE: [facility] Comment: ?? Not Reported: BUN and Creatinine are within ?? reference range. ? SODIUM 136 135 - 146 mmol/L [facility] POTASSIUM 4.3 3.5 - 5.3 mmol/L [facility] CHLORIDE 103 98 - 110 mmol/L [facility] CARBON DIOXIDE 26 20 - 32 mmol/L [facility] CALCIUM 9.6 8.6 - 10.2 mg/dL [facility] PROTEIN, TOTAL 7.2 6.1 - 8.1 g/dL [facility] ALBUMIN 3.8 3.6 - 5.1 g/dL [facility] GLOBULIN 3.4 1.9 - 3.7 g/dL (calc) [facility] ALBUMIN/GLOBULI N RATIO 1.1 1.0 - 2.5 (calc) [facility] BILIRUBIN, TOTAL 0.9 0.2 - 1.2 mg/dL [facility] ALKALINE PHOSPHATASE 64 31 - 125 U/L [facility] AST 41(H) 10 - 30 U/L [facility] ALT 80(H) 6 - 29 U/L [facility] Blood Blood / Unknown 03/06/2023 9 :12 AM EDT 03/06/2023 9:13 AM EDT Narrative [email or web address] [facility] - 03/07/2023 12:54 AM EDT FASTING:YES us Elina Jorgensen PA-C LAB - BLOOD DRAW Edited Resu lt - Final [facility] [address] [address], [facility] [address] [address] * HEPATITIS C AB W/RFLX HCV RNA, QT, RT PCR (02/19/2022 10:40 AM EDT) HEPATITIS C ANTIBODY NON-REACT BROWN NON-REACT BROWN [employer] [facility] SIGNAL TO CUT-OFF 0.19 <1.00 [employer] Comment: HCV antibody was non-reactive. There is no laboratory evidence of HCV infection. In most cases, no further action is required. However, if recent HCV exposure is suspected, a test for HCV RNA (test code 85514) is suggested. For additional information please refer to http://education.Coupmon/faq/EMV09o3 (This link is being provided for informational/ educational purposes only.) Blood Blood / Unknown 02/19/2022 1 0:40 AM EDT 02/19/2022 10:41 AM EDT Narrative [email or web address] [facility] - 02/19/2022 11:01 PM EDT FASTING:YES Elina Jorgensen PA-C LAB - BLOOD DRAW Edited Resu lt - Final [facility] [employer] [address] [place] [address], [employer] [address] [place] [address],[place] [address] * HIV-1 & HIV-2 ANTIBODIES (08/03/2019 9:43 AM EST) Pathologist [facility] HIV 1 AND 2 ANTIBODY SCREEN NEGATIVE NEGATIVE [facility] Comment: This assay is a 4th generation assay allowing for earlier detection of HIV infection by detecting the presence of the HIV-1 p24 antigen as well as the traditional antibodies to HIV type 1 (including group O) and type 2. ??Use of a 4th generation assay is the current CDC recommendation for HIV screening. Blood specimen (specimen) Blood / Unknown 08/03/2019 9:43 AM EST 08/03/2019 10:01 AM EST Narrative [facility] - 08/03/2019 1:17 PM EST [employer], a member of [address] [address] Linen Room Attendant - Page Carrillo MD PT ID [id number] ORD# [id number] Roseanna Baez CURING MACHINE OPERATOR LAB - BLOOD DRAW Final Result [facility] [address] [place] [address], [place] [phone] from Last 3 Months or Most Recently Relevant to Health Maintenance Insurance HEALTH SAF[employer] NET DENTAL [facility] [place] [address] [facility] Care Teams Carroting Machine Offbearer Relationship Specialty Start Date End Date Elina Jorgensen PA-C [address] [place] [address] PCP - General FAMILY MEDICINE, MARIE 10/20/21
== END 2024-08-24 12:55 | disposition home or self-care (01) ==
PROVIDERS: PCP Physician Assistant; Visit Provider Orthopaedic Surgery
DX: Z98.890 Other specified postprocedural states (principal)
CPT/HCPCS: 99024

== ENCOUNTER → 2024-08-24 12:01 | Outpatient (BNVA) | payer MEDICAID, SELFPAY | PROVIDERS: PCP Physician Assistant; Visit Provider Orthopaedic Surgery | DX: Z98.890 Other specified postprocedural states (principal) | CPT/HCPCS: 99212 ==